=== PATIENT | female | born 1960 | race Caucasian/White ===

== ENCOUNTER 2018-05-24 19:48 | Inpatient (IN) | payer BC, MEDICAID ==
[~2018-05-24] VITALS: Ht 160 cm; Wt 78.7 kg
[2018-05-24 19:52] VITALS: Ht 160 cm; Wt 78.7 kg
--- NOTE | 2018-05-24 20:08 | NUR ---
FIBROMYALGIA, OSTEOARTHRITIS, HTN, HIGH CHOLESTEROL
--- NOTE | 2018-05-24 20:10 | NUR ---
PT HERE FOR C/O SOB X A FEW DAYS. PT STATES SHE HAS HAD THIS BEFORE BUT NEVER THIS BAD. PT HAS AUDIBLE EXPIRATORY WHEEZES IN UPPER BASES. PT HAS INCREASED WOB WITH EQUAL CHEST RISE. PT IS SPEAKING IN CLEAR AND FULL SENTENCES. PT IS COUGHING UP GREEN SPUTUM. PT STATES SHE HAS BEEN SICK LATELY, BUT BECAME INCREASINGLY SOB TODAY. PT STATES SHE DROVE HERSELF HERE. PT IS EXTREMELY RESTLESS IN BED AND IS UNABLE TO LIE STILL. PT DENIES HAVING ANY ANXIETY BUT ADMITS TO BIPOLAR, HTN, FIBROMYALGIA, HYSTERECTOMY, HIGH CHOLESTEROL. PT IS FIGITY IN BED AND UNABLE TO FOLLOW COMMANDS TO SIT STILL. DR BOWDEN AT BEDSIDE FOR MSE. PT IS DIAPHORETIC AND TACHY ON THE CARDIAC MONITORS. RETRIEVING ORDERS AT THIS TIME.
--- NOTE | 2018-05-24 20:12 | NUR ---
WHEN ASKED WHY SHE CANT SIT STILL PT STATES "MY FIBROMYALGIA AND OSTEOARTHRITIS FLARES UP WHEN I DONT FEEL GOOD AND IT HURTS"
[2018-05-24 20:37] LABS: PLATELET COUNT 284 x10^3mcL (130-400); RED CELL DISTRIBUTION WIDTH 13.6 % (11.5-14.5)
[2018-05-24 20:50] LABS: CALCIUM 9.1 mg/dL (8.5-10.1); CARBON DIOXIDE 19.9 mmol/L (21-32); CHLORIDE SERUM 100 mmol/L (98-107); CREATININE SERUM 0.9 mg/dL (0.6-1.0); GFR1 > 60 mL/min; GLUCOSE SERUM 83 mg/dL (74-106); POTASSIUM SERUM 3.5 mmol/L (3.5-5.1); SODIUM SERUM 134 mmol/L (136-145)
[2018-05-24 20:54] LABS: ALBUMIN 3.9 g/dL (3.4-5.0); ALKALINE PHOSPHATASE 113 U/L (46-116); ALT/SGPT 47 U/L (14-59); AST/SGOT 38 U/L (15-37); BILIRUBIN TOTAL 0.86 mg/dL (0.20-1.00); CHOLESTEROL 147 mg/dL (<200); CHOLESTEROL/HDL RATIO 2.6; HDL CHOLESTEROL 57 mg/dL (40-60); LIPASE 47 IU/L (73-393); TOTAL PROTEIN, SERUM 7.4 g/dL (6.4-8.2); TRIGLYCERIDES 77 mg/dL (<150)
[2018-05-24 21:03] LABS: BAND NEUTROPHIL 4 % (0-10); MONOCYTE 7 % (0-7); SEGMENTED NEUTROPHILS 74 % (37-75); T3 TOTAL 1.05 ng/mL
[2018-05-24 21:05] LABS: PLATELET MORPHOLOGY PLATELETS NORMAL; acanthocyte (spur cell) 1+; rbc morphology (normal/abnorm) ABNORMAL (NORMAL)
[2018-05-24 21:17] LABS: FREE T4 1.12 ng/dL (0.76-1.46); FREE THYROXINE INDEX 3.2 ug/dL (1.4-4.5); T4(THYROXINE) 9.9 ug/dL (4.7-13.3)
--- NOTE | 2018-05-24 21:19 | NUR ---
ULTRASOUND AT BEDSIDE
--- NOTE | 2018-05-24 22:00 | NUR ---
FRIEND AT BEDSIDE
--- NOTE | 2018-05-24 22:16 | NUR ---
PT LYING SEMI FOWLERS IN BED WITH EQUAL CHEST AND UNLABORED CHEST RISE VISIBLE. PT IS AUDIBLE SNORING. VITALS WNL. NO DISTRESS NOTED AT THIS TIME. FRIEND AT BEDSIDE. CARDIAC MONITORS AND PLETH OX AND OXYGEN IN PLACE.
[2018-05-24 22:41] LABS: microscopic required? NO
[2018-05-24 22:46] LABS: UA SPECIFIC GRAVITY <=1.005 (1.005-1.035); urine erythrocyte NEGATIVE (NEGATIVE)
[2018-05-24 22:58] LABS: AMPHETAMINE QUAL UR NONE DETECTED (See below)
--- NOTE | 2018-05-24 23:28 | NUR ---
BELONGINGS LIST COMPLETED BY ME,BILL ALONSO, NOT PRUDENCIO. PT SON STATES PT HAS LOWER PARTIAL DENTURES AT HOME. PT UNABLE TO PROVIDE MED LIST, AND SON STATES HE HAS NO IDEA WHAT MEDICATIONS MOTHER IS ON, ONLY KNOWS THAT SHE IS ON "A LOT OF MEDICATIONS".
[2018-05-25] VITALS (7 sets, daily range): BP systolic 105–130; BP diastolic 60–75
[2018-05-25 00:43] LABS: MAGNESIUM 1.8 mg/dL (1.8-2.4); PHOSPHOROUS 3.9 mg/dL (2.5-4.9)
--- NOTE | 2018-05-25 01:54 | NUR ---
ADMITTED A 57 YEARS OLD FEMALE CAME IN VIA GURNEY ACCOMPANIED BY SON WITHC/O PRODUCTIVE COUGH,SOB AND BODYACHE SECONDARY TO MECHANICAL FALL. PATIENT STEPPED OVER THE GAS HOSE AT THE GAS STATION SUSTAINED SMALL ABRASIONS TO LEFT LEG AND NOSE. BREATHING TREATMENT GIVEN IN ER, PATIENT WITH EXPIRATORY WHHEZING,SOLUMEDROL 125 IV GIVEN IN ER. WITH ADMISSION ORDERS AND CARRIED OUT, IV TO RFA INTACT AND INFUSING WELL. TELE#[id number] NSR ON MONITOR. CALL LIGHT WITHIN REACH. WILL CONTINUE TO MONITOR.
--- NOTE | 2018-05-25 05:17 | NUR ---
SLEPT FAIRLY NO SIGN OF RESPIRATORY DISTRESS NOTED. O2 ON AND OFF SATTING AT 99% RA. ALL NEEDS ATTENDED.
[2018-05-25 07:47] LABS: CALCIUM 8.2 mg/dL (8.5-10.1); CHLORIDE SERUM 105 mmol/L (98-107); CREATININE SERUM 0.7 mg/dL (0.6-1.0); GFR1 > 60 mL/min; GLUCOSE SERUM 180 mg/dL (74-106); POTASSIUM SERUM 3.2 mmol/L (3.5-5.1); SODIUM SERUM 139 mmol/L (136-145)
--- NOTE | 2018-05-25 08:00 | NUR ---
PATIENT RECEIVED SNORING AND SEEMS COMFORTABLE AT THIS TIME. IV INTACT AND NOTED PATIENT HAS HISTORY OF FALLING AND HAS BEEN WITH HISTORY OF OSTEOARTHRITIS , HTN, BIPOLAR, FIBROMYALGIA, HDL. PATIENT HAS NOTED LABS OF WBC AT 11.3, CA AT 8.2, LIPASE AT 47, GLUCOSE OF 180. PATIENT HAS BEEN ON SOLUMEDROL AND LEVAQUIN AND NO ADVERSE REACTION NOTED. PATIENT HAS NO AUDIBLE COUGH AT THIS TIME. PATIENT HAD A SMALL ABRSION TO THE LEFT LEG AND TO THE NOSE FROM A FALL WHEN SHE TRIPPED OVER THE HOSE AT THE GAS PUMP. SHE HAS NO COMPLAINTS OF PAIN AT THIS TIME AND WILL CONTINUE TO MONITOR.
[2018-05-25 08:37] LABS: BASOPHIL % 0.1 % (0-2); PLATELET COUNT 231 x10^3mcL (130-400); RED CELL DISTRIBUTION WIDTH 13.7 % (11.5-14.5)
--- NOTE | 2018-05-25 09:00 | NUR ---
GAVE MEDICATIONS ORDERED. SHE IS BACK TO SLEEP AT THIS TIME.
--- NOTE | 2018-05-25 13:43 | NUR ---
CALLED RESIDENT AGAIN FOR REQUEST FOR NICODINE PATCH.
--- NOTE | 2018-05-25 16:22 | NUR ---
CALLED PATIENTS PHARMACY FOR A LIST OF HER MEDICATIONS TO UPDATE HER RECONSILIATION FORM. PATIENT GIVEN HER NICODERM PATCH ORDERED. SHE HAS RECEIVE ZITHROMAX AND NO ADVERSE REACTION.
--- NOTE | 2018-05-25 16:50 | NUR ---
DR. JON AT BEDSIDE TO SPEAK WITH PATIENT- PATIENT SEEN BY DR. DNONELLY AND CLEARED PATIENT FOR DISCHARGE. DR. JON REVIEWED DISCHARGE WITH PATIENT, PATIENT IS TO FOLLOW UP WITH PCP DR. REGAN AND REVIEWED DISCHARGE MEDICATIONS. ALL QUESTIONS AND CONCERNS ADDRESSED. SAFETY PRECAUTIONS MAINTAINED. WILL NOTIFY PRIMARY RN.
[2018-05-25] MEDS ORDERED: ALBUTEROL1.25 MG/3 NEB (16:53)
[2018-05-25] MEDS ORDERED: AZITHROMYCIN250 M1 PO (16:54)
[2018-05-25] MEDS ORDERED: TESSALON PERLE100 MG PO (16:54)
--- NOTE | 2018-05-25 17:13 | NUR ---
RECEIVED FAX FROM [facility] AND NOW NOTED PATIENT IS TO BE DISCHARGED HOME. IS WRITING PRESCRIPTIONS INDICATED. OCCASIONAL COUGH AND NO INDICATION OF ACUTE RESPIRATIORY DISTRESS.
== END 2018-05-25 18:45 | disposition home or self-care (01) | DRG 871 ==
LOC: ED 19:48 → DU 22:44
PROVIDERS: Specialist; ADMIT General Practice
DX: A41.9 Sepsis, unspecified organism (principal); J96.00 Acute respiratory failure, unspecified whether with hypoxia or hypercapnia; E87.1 Hypo-osmolality and hyponatremia; I10 Essential (primary) hypertension; F31.9 Bipolar disorder, unspecified; M79.7 Fibromyalgia; Z90.710 Acquired absence of both cervix and uterus; Z88.8 Allergy status to other drugs, medicaments and biological substances; F41.9 Anxiety disorder, unspecified; M19.90 Unspecified osteoarthritis, unspecified site; J44.9 Chronic obstructive pulmonary disease, unspecified; E78.5 Hyperlipidemia, unspecified; Z87.891 Personal history of nicotine dependence; J20.9 Acute bronchitis, unspecified
CPT/HCPCS: 36600; 83880; 84439; 85378; 87804; 94150; G0480; J0456; J1956; J2060; J2920; J2930; J7030; J7613; J7620; J7644; Q0092